=== PATIENT | male | born 2000 | race Caucasian/White ===

== ENCOUNTER 2024-04-04 14:35 | Emergency (ER) | payer OTHER ==
[~2024-04-04] VITALS: Ht 180.3 cm; Wt 81.7 kg
[2024-04-04] MEDS ORDERED: Ultram50 MG PO ×2 (15:26→15:41)
[2024-04-04] MEDS ORDERED: AMOCLA875 PO ×2 (15:26→15:41)
== END 2024-04-04 15:45 | disposition home or self-care (01) ==
LOC: ER 14:35
DX: K04.01 Reversible pulpitis (principal); K02.9 Dental caries, unspecified
CPT/HCPCS: 99282